=== PATIENT | female | born 1950 | race Caucasian/White ===

== ENCOUNTER 2018-06-19 10:44 | Outpatient (CLI) | payer BC ==
--- NOTE | 2018-06-19 11:15 | MMO ---
Bilateral MAMMO Bilat Screen [facility]. CLINICAL HISTORY: Patient is 67 years old and is seen for screening. The patient has no family history of breast cancer. The patient has no personal history of cancer. VIEWS: The views performed were: bilateral craniocaudal with tomosynthesis and bilateral mediolateral oblique with tomosynthesis. FILMS COMPARED: The present examination has been compared to prior imaging studies performed at [facility] on 04/26/2011, 08/21/2012, 03/17/2014 and 04/19/2015. MAMMOGRAM FINDINGS: There are scattered fibroglandular densities. There are benign appearing calcifications seen in both breasts. There are no suspicious masses, suspicious calcifications, or new areas of architectural distortion. IMPRESSION: THERE IS NO MAMMOGRAPHIC EVIDENCE OF MALIGNANCY. A ROUTINE FOLLOW-UP MAMMOGRAM IN 1 YEAR IS RECOMMENDED. THE RESULTS OF THIS EXAM WERE SENT TO THE PATIENT. ACR BI-RADS Category 2 - Benign finding MAMMOGRAPHY NOTE: 1. A negative mammogram report should not delay a biopsy if a dominant of clinically suspicious mass is present. 2. Approximately 10% to 15% of breast cancers are not detected by mammography. 3. Adenosis and dense breasts may obscure an underlying neoplasm.
== END 2018-06-19 10:45 | disposition home or self-care (01) ==
LOC: BICMAMMO 10:44
PROVIDERS: ATTEND Internal Medicine
DX: Z12.31 Encounter for screening mammogram for malignant neoplasm of breast (principal)
CPT/HCPCS: 77063; 77067

== ENCOUNTER 2018-10-30 13:35 | Outpatient (CLI) | payer BC ==
[2018-10-30 14:19] LABS: Estimated GFR-MDRD - POC Greater than 90
--- NOTE | 2018-10-30 15:12 | RAD ---
THREE VIEWS LUMBAR SPINE: HISTORY: Low back pain. Numbness. FINDINGS: Lateral neutral, lateral flexion, and lateral extension views of the lumbar spine are submitted for i nterpretation. There are 5 lumbar-type vertebral bodies. In the neutral position, 7.1 mm of anterol isthesis of L4 upon L5. Upon flexion, 8.2 mm of anterolisthesis of L4 upon L5. Upon extension, 7.5 mm of anterolisthesis of L4 upon L5. There is vacuum disk phenomenon and osteophyte formation at L5-S1. Atherosclerosis of the aorta is noted. IMPRESSION: 1. Grade I anterolisthesis of L4 upon L5 slightly worsening upon extension and flexion. 2. Moderate degenerative change at L5-S1. POS: OFF
--- NOTE | 2018-10-30 16:18 | MRI ---
Exam: MRI lumbar spine with and without contrast HISTORY: Lumbar stenosis. Bilateral leg pain and numbness. FINDINGS: Appropriate T1 marrow signal intensity of the lumbar vertebra. Lumbar spine intervertebral body heigh t is maintained.. No fracture. No significant STIR hyperintensity to suggest vertebral body edema or ligamentous injury. 5 mm of anterolisthesis of L4 for upon L5 without associated spondylolysis. Postcontrast images do not demonstrate abnormal enhancement with regards to the vertebral bodies. Cau da equina and conus medullaris do not have any abnormal enhancement. Symmetric signal intensity of the paraspinal muscles. Appropriate signal intensity in the visualized solid organs. Conus medullaris terminates at the superior endplate of T12 The AP diameter of the central spinal canal is narrowed secondary to congenitally foreshortened pedic les. T12-L1: Mild loss of disc space height. No significant central canal stenosis. Bilaterally, neural fo ramina are patent L1-L2: No severe loss of disc space height. Minimal left right paracentral disc bulge. No significant central canal stenosis. Bilaterally, neural foramina are patent L2-L3: No significant loss of disc space height. Broad-based disc bulge, ligament flavum thickening a nd facet hypertrophy result in moderate central canal stenosis. Mild bilateral foraminal narrowing. L3-L4: Adequate disc hydration. Broad-based disc bulge, ligamentum flavum thickening and facet hypert rophy results in moderate to severe central canal stenosis. Mild right neural foraminal narrowing. Moderate left foraminal narrowing. L4-L5: Adequate disc hydration without significant loss of disc space height. Broad-based disc bulge, ligament flavum thickening, anterolisthesis and facet hypertrophy result in severe central canal stenosis. Mild bilateral neural foraminal narrowing. L5-S1: There is a left hemilaminotomy defect. There is enhancement likely due to a scar involving the posterior, left subarticular aspect of the disc. There is also abnormal signal intensity in the left subarticular zone which is in part due to scar tissue. The thecal sac is empty at this level, po ssibly due to chronic arachnoiditis. Right subareolar zone is unremarkable. Moderate to severe bilateral neural foraminal narrowing. IMPRESSION: 1. Abnormal signal intensity involving the L5-S1 disc with abnormal signal noted in the left subartic ular zone. Abnormal signal may be due to granulation tissue. 2. Absent nerve roots in the thecal sac at the L5 level, compatible the empty sac sign. Correlate for chronic arachnoiditis. 3. Severe central canal stenosis at L4-L5 and moderate to severe central canal stenosis at L3-L4. Transcribed Date/Time: 10/30/2018 6:32 PM
== END 2018-10-30 13:36 | disposition home or self-care (01) ==
LOC: TBSIIMAG 13:35
PROVIDERS: ATTEND Physician Assistant
DX: M48.062 Spinal stenosis, lumbar region with neurogenic claudication (principal); M43.16 Spondylolisthesis, lumbar region; M47.817 Spondylosis without myelopathy or radiculopathy, lumbosacral region; R93.7 Abnormal findings on diagnostic imaging of other parts of musculoskeletal system
CPT/HCPCS: 72100; 72158; 82565

== ENCOUNTER 2019-11-07 11:18 | Outpatient (CLI) | payer BC ==
--- NOTE | 2019-11-07 12:00 | MMO ---
Bilateral MAMMO Bilat Screen [facility]. CLINICAL HISTORY: Patient is 69 years old and is seen for screening. The patient has no family history of breast cancer. The patient has no personal history of cancer. VIEWS: The views performed were: bilateral craniocaudal with tomosynthesis and bilateral mediolateral oblique with tomosynthesis. FILMS COMPARED: The present examination has been compared to prior imaging studies performed at [facility] on 08/21/2012, 03/17/2014, 04/19/2015 and 06/19/2018. This study has been interpreted with the assistance of computer-aided detection. MAMMOGRAM FINDINGS: There are scattered fibroglandular densities. Finding 1: There are stable benign appearing calcifications seen in both breasts. Finding 2: There are stable focal asymmetries seen in both breasts. There are no suspicious masses, suspicious calcifications, or new areas of architectural distortion. IMPRESSION: THERE IS NO MAMMOGRAPHIC EVIDENCE OF MALIGNANCY. A ROUTINE FOLLOW-UP MAMMOGRAM IN 1 YEAR IS RECOMMENDED. THE RESULTS OF THIS EXAM WERE SENT TO THE PATIENT. ACR BI-RADS Category 2 - Benign finding MAMMOGRAPHY NOTE: 1. A negative mammogram report should not delay a biopsy if a dominant of clinically suspicious mass is present. 2. Approximately 10% to 15% of breast cancers are not detected by mammography. 3. Adenosis and dense breasts may obscure an underlying neoplasm. Reported by: LISA BELL MD Electonically Signed: [id number]
== END 2019-11-07 11:19 | disposition home or self-care (01) ==
LOC: BICMAMMO 11:18
PROVIDERS: ATTEND Internal Medicine
DX: Z12.31 Encounter for screening mammogram for malignant neoplasm of breast (principal)
CPT/HCPCS: 77063; 77067

== ENCOUNTER 2023-02-28 12:37 | Outpatient (CLI) | payer BC | END 2023-02-28 12:38 | disposition home or self-care (01) | LOC: BICMAMMO 12:37 | PROVIDERS: ATTEND Internal Medicine | DX: Z12.31 Encounter for screening mammogram for malignant neoplasm of breast (principal) | CPT/HCPCS: 77063; 77067 ==